=== PATIENT | female | born 1955 | race Caucasian/White ===

== ENCOUNTER 2016-07-04 11:58 | Day surgery (SDC) | payer OTHER ==
[2016-07-03 17:49] VITALS: BMI 35.0
[~2016-07-04] VITALS: Ht 154.9 cm; Wt 85.0 kg
[2016-07-04] VITALS (10 sets, daily range): BP systolic 122–139; BP diastolic 72–82; PULSE 64–78; RESP 12–36; Ht 154.9 cm; Wt 85.0 kg
[~2016-07-04 11:58] MED LIST: ALLO100T PO; CALC0.5C4 PO; CEFAZOLIN 2 GM/50 ML (PMX) 50 ML IVPB ONE; CLOT45CR6 VAG; CYAN100018 PO; Hydrocodone Bit/Acetaminophen PO; LEVO150T67 PO; LORA10TA3 PO; LOSA50TA6 PO; LOVA10TA63 PO; SOD CHLORIDE 0.9% 1,000 ML IV SCH; TRAJENTA; VIT1TABL85 PO
[2016-07-04] MEDS ORDERED: OMEP40CA6 PO (13:15)
[2016-07-04] MEDS ORDERED: DESO15CR9 TOP (13:15)
[2016-07-04] MEDS ORDERED: MIDAZOLAM 1 MG/ML 2 ML INJ ONE (15:10)
[2016-07-04] MEDS ORDERED: FENTAnyl 50 MCG/ML VIAL ONE ×2 (15:10)
[2016-07-04] MEDS ORDERED: BUPIVACAINE 0.25% (MPF) 30 ML INJ ONE (15:10)
[2016-07-04] MEDS ORDERED: hydrALAzine 20 MG INJ IV PRN (15:30)
[2016-07-04] MEDS ORDERED: DIPHENHYDRAMINE 50 MG INJ IV PRN (15:30)
[2016-07-04] MEDS ORDERED: FENTAnyl 50 MCG/ML VIAL IV PRN (15:30)
[2016-07-04] MEDS ORDERED: MEPERIDINE 25 MG INJ IV PRN (15:30)
[2016-07-04] MEDS ORDERED: ONDANSETRON 4 MG INJ IV PRN (15:30)
[2016-07-04] MEDS ORDERED: morphine (1 MG/ML) 10ML SYRINGE IV PRN ×2 (15:30)
[2016-07-04] MEDS ORDERED: LABETALOL HCL 20MG INJ IV PRN (15:30)
[2016-07-04] MEDS ORDERED: CEFAZOLIN 1 GM INJ ONE (15:52)
[2016-07-04] MEDS ORDERED: LIDOCAINE 2% (SDV) 5 ML INJ ONE (15:52)
[2016-07-04] MEDS ORDERED: ONDANSETRON 4 MG INJ ONE (15:52)
[2016-07-04] MEDS ORDERED: PROPOFOL 20 ML ONE (15:52)
[2016-07-04] MEDS ORDERED: HYDROCODONE/APAP (5/325) TAB PO ONE (16:00)
--- NOTE | 2016-07-04 16:20 | OPR ---
DATE OF OPERATION: 07/04/2016 INDICATION: This is a 60-year-old female with a right axillary and right back mass. She requests s urgical excision for both masses. Risks, alternatives, benefits, and personnel were discussed with the patient. Patient expresses understanding and consents to the operation. PREOPERATIVE DIAGNOSIS: Right axilla and right back mass. POSTOPERATIVE DIAGNOSIS: Right axilla and right back mass. OPERATION PERFORMED: 1. Excision of right axillary mass with a 6 cm size incision and 5 cm size mass. 2. Right back mass with 6 cm size incision and 5 cm size mass. 3. Localized adjacent tissue transfer with the use of skin flaps. SURGEON: Lino Carrillo MD SPECIMEN: Right axillary and right back mass. COMPLICATIONS: None. ANESTHESIA: General. DESCRIPTION OF PROCEDURE: The patient was taken to the OR, prepped and draped in the usual sterile fashion. Surgical timeout was performed. IV antibiotics were given. Incision is made transversel y over the right axillary mass with a 15 blade. Dissection cautery was carried down to the mass and circumferentially excised. There was good hemostasis. Due to the large tissue defect, localized a djacent tissue transfer with the use of skin flaps was performed. Multilayer closure with interrupt ed 3-0 Vicryl and skin ciara, right back masses attended to also in a similar fashion with an inci jose transversely with a 10 blade. Dissection cautery was carried down to the mass and circumferent ially excised. There was good hemostasis. Due to tissue defect, localized adjacent tissue transfer with the use of skin plasty was performed. Multilevel closure with interrupted 3-0 Vicryl and skin ciara. Local anesthesia was injected at both sites. Dry dressings were applied. Dictated By: LINO CARRILLO MD SB/NTS Conf#: [id number] DID#: [id number]
== END 2016-07-04 17:30 | disposition home or self-care (01) ==
LOC: SDS 11:58
PROVIDERS: ATTEND Surgery
DX: D17.1 Benign lipomatous neoplasm of skin and subcutaneous tissue of trunk (principal); D17.21 Benign lipomatous neoplasm of skin and subcutaneous tissue of right arm; E11.9 Type 2 diabetes mellitus without complications; I10 Essential (primary) hypertension; E78.5 Hyperlipidemia, unspecified; E66.01 Morbid (severe) obesity due to excess calories; Z68.35 Body mass index [BMI] 35.0-35.9, adult
CPT/HCPCS: 88307; J0690; J2250; J2405; J3010

== ENCOUNTER 2017-04-14 07:30 | Day surgery (SDC) | payer OTHER ==
[~2017-04-14] VITALS: Ht 154.9 cm; Wt 81.2 kg
[~2017-04-14 07:30] MED LIST changes: -CEFAZOLIN 2 GM/50 ML (PMX) 50 ML IVPB ONE; +DESO15CR9 TOP; +OMEP40CA6 PO; -SOD CHLORIDE 0.9% 1,000 ML IV SCH
[2017-04-14 08:28] VITALS: Ht 154.9 cm; Wt 81.2 kg
[2017-04-14] MEDS ORDERED: PROPOFOL 40 ML ONE (09:23)
[2017-04-14] MEDS ORDERED: LIDOCAINE 2% (SDV) 5 ML INJ ONE (09:23)
[2017-04-14 09:40] VITALS: BP 121/70; PULSE 67; RESP 20
--- NOTE | 2017-04-14 10:29 | OPPN ---
Date/Time of Note Date/Time of Note DATE: 04/14/17 TIME: 10:26 Proc Note GI Procedure Date 04/14/17 Indication: screening/surveillance, diagnostic Pre-procedure Diagnosis EGD with biopsy for esophageal ulceration. Gastritis Screening colonoscopy Post-procedure Diagnosis Esophageal ulceration Gastritis Colon polyps 3 of them removed with cold snare technique There was a polyp in the rectum which appeared to be inverted diverticulum. Procedure Performed: Endoscopy, Colonoscopy Surgeon see signature line Palliative Senior Np none Anesthesia Type: MAC Tourniquet Time none EBL none Transfusion required none Biopsy 1: Stomach biopsy Polyp 1: Cecal polyp 7 mm in diameter Polyp 2: This colon polyp 8 mm in diameter 2 of them Grafts/Implants none Tubes/Drains none Complication(s) none Disposition: PACU Procedure Description Dictated ANJANA MCKEON MD Apr 14, 2017 10:29
[2017-04-14 10:58] VITALS: BP 117/76; PULSE 66; RESP 20
--- NOTE | 2017-04-14 14:50 | GILP ---
DATE OF PROCEDURE: INDICATION FOR THE PROCEDURE: A 61-year-old female undergoing this procedure for chronic heartburn, not responding to PPI. Colonoscopy for colon cancer screening. The risk of the procedure, related and unrelated complications, anesthetic risk, alternatives were t horoughly discussed, which patient understood, agreed and gave informed consent. DESCRIPTION OF PROCEDURE: Patient was brought to the GI lab, sedated by the anesthesiologist. Afte r obtaining sedation, scope was passed with much ease into esophagus. She had esophageal ulceration in the distal part of the esophagus with hyperemic mucosa, greater than 5 mm, 2 such hyperemic patc hes identified. Z-line was at 35 cm. Stomach mucosa revealed gastritis. There was a diminutive po lyp successfully removed by cold biopsy forceps and 2 biopsies obtained for H. pylori infection. Du odenum, first and second part appeared normal. Ampulla was not identified. The scope was withdrawn into the stomach. Retroversion done which was normal. No polyps, no growth, no varicose vein iden tified. Scope was straightened out and removed with excellent patient tolerance. IMPRESSION 1. Erosive esophagitis, LA class C. 2. Z-line at 35 cm which was regular. 3. Gastritis with a diminutive polyp in the stomach. 4. Normal duodenum. PLAN: Review histopathology in the interim, the patient will be placed on PPI 40 mg instead of 20 m g. COLONOSCOPY REPORT: The patient was turned around, scope was passed with much ease into rectum, adv anced through sigmoid, descending, transverse colon all the way into cecum. In the cecum the polyp was identified which was 6 to 7 mm in diameter, successfully removed by cold snare technique. A ___ _ cold snare technique was used. Polyp was retrieved and sent for analysis. There are other 2 flat polyps in the transverse colon successfully removed by cold snare technique. One of them was retri eved, the other one was unable to retrieve it. There was a fourth polyp appeared to be polyp in the rectum, but it had umbilicus ____ opening in the center which appeared to be inverted diverticulum, so no attempt was made to remove it. The scope was removed with excellent patient tolerance. IMPRESSION: 1. Three polyps successfully removed. Each one was ranging from 7 to 8 mm in diameter, all of them were removed by cold snare technique. 2. 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 3. Clarity and cleanliness was good. PLAN: Review histopathology of the polyp. Patient definitely needs a colonoscopy in 3 years given the questionable inverted diverticulum versus polyp, would like to reevaluate it after 3 years to ma ke sure it has not have grown in size. In the interim, patient should be on a high-fiber diet. Dictated By: ANJANA GREEN/KAYLEN Conf#: [id number] DID#: [id number]
== END 2017-04-14 18:40 | disposition home or self-care (01) ==
LOC: GIL 07:30
PROVIDERS: ATTEND Internal Medicine Gastroenterology
DX: Z12.11 Encounter for screening for malignant neoplasm of colon (principal); D12.3 Benign neoplasm of transverse colon; K20.9 Esophagitis, unspecified; K29.70 Gastritis, unspecified, without bleeding; K31.7 Polyp of stomach and duodenum; E11.9 Type 2 diabetes mellitus without complications; E03.9 Hypothyroidism, unspecified; E78.5 Hyperlipidemia, unspecified; I10 Essential (primary) hypertension
CPT/HCPCS: 43239; 45385; 88305; 88312; Z7610